=== PATIENT | male | born 1980 | race Caucasian/White ===

== ENCOUNTER 2017-07-01 20:04 | Emergency (ER) | payer BC, MEDICARE ==
[~2017-07-01] VITALS: Ht 180.3 cm; Wt 80.0 kg
[2017-07-01 20:19] VITALS: BP 158/103; PULSE 84; RESP 16; TEMP 98.3; O2SAT 99
[2017-07-02] MEDS ORDERED: DICL75TA PO (00:21)
[2017-07-02] MEDS ORDERED: ROBA500T PO (00:21)
[2017-07-02] MEDS ORDERED: MEDR4PAK PO (00:21)
--- NOTE | 2017-07-02 00:27 | PD ---
HPI Chief Complaint: Skin Problem Time Seen by Provider: 23:48 Travel History International Travel<30 days: No Contact w/Intl Traveler<30days: No Traveled to known affect area: No History of Present Illness HPI 36-year-old white male presents emergency department requesting treatment of his rash. He just got into town today. He plans on going to [facility] in [facility]. 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 He typically has progression of his disease if not treated quickly. He typically gets an injection of steroids. Patient also goes on to state that he is disabled with multiple chronic orthopedic injuries and feels that he has exacerbated his chronic neck pain during the drive down to [place] and by moving a cooler in the car. He states that he is taking ibuprofen without relief. He plans on being in town for the next 10 days. Symptoms are mild. Exacerbated by movement and working in the yard. No alleviating factor. PFSH Past Medical History Narrative Medical Hypertension, chronic neck and back pain, Immunizations Current: Yes Tetanus Vaccination: < 5 Years Influenza Vaccination: No Past Surgical History Narrative Surgical Multiple orthopedic surgeries Social History Alcohol Use: No Tobacco Use: No Substance Use: No Allergies-Medications (Allergen,Severity, Reaction): Coded Allergies: acetaminophen (Verified Allergy, Unknown, 07/01/17) aripiprazole (Verified Allergy, Unknown, 07/01/17) hydrocodone (Verified Allergy, Unknown, 07/01/17) propoxyphene (Verified Allergy, Unknown, 07/01/17) tramadol (Verified Allergy, Unknown, 07/01/17) venlafaxine (Verified Allergy, Unknown, 07/01/17) Reported Meds & Prescriptions Reported Meds & Active Scripts Active Diclofenac Sodium DR (Diclofenac Sodium) 75 Mg Tabdr 75 Mg PO BID Robaxin (Methocarbamol) 500 Mg Tab 1,000 Mg PO TID 7 Days Medrol Dosepak (Methylprednisolone) 4 Mg Dspk 4 Mg PO DIRECTED Per Pharmacist direction Review of Systems Except as stated in HPI: all other systems reviewed are Neg Physical Exam Narrative GENERAL: Well-developed, well-nourished in no acute distress. Nontoxic appearing. HEAD: Normocephalic, atraumatic. EYES: Pupils equal round and reactive. Extraocular motions intact. No scleral icterus. No injection or drainage. ENT: TMs clear without erythema. The external auditory canals clear. Nose: clear . Posterior pharynx is pink and moist. No tonsillar edema or exudate. Uvula midline. Airway patent. NECK: Trachea midline. Complaints of diffuse cervical tenderness. Decreased range of motion. No central bony tenderness or spasm. CARDIOVASCULAR: Regular rate and rhythm without murmurs, gallops, or rubs. RESPIRATORY: Clear to auscultation. Breath sounds equal bilaterally. No wheezes , rales, or rhonchi. GASTROINTESTINAL: Abdomen soft, non-tender, nondistended. No hepato-splenomegaly , or palpable masses. No guarding. EXTREMITIES: No clubbing, cyanosis, or edema. No joint tenderness, effusion, or edema noted. BACK: Nontender without deformity or crepitance. No flank tenderness. Skin: Patient complains of a mild erythema to the upper extremities. There are a few small punctate lesions without vesicles or pustules. Data Data Last Documented VS Vital Signs Date Time Temp Pulse Resp B/P (MAP) Pulse Ox O2 Delivery O2 Flow Rate FiO2 07/01/17 20:19 98.3 84 16 158/103 (121) 99 Orders Orders Dexamethasone Inj (Decadron Inj) (07/02/17 00:30) Ed Discharge Order (07/02/17 00:17) [facility] Medical Decision Making Medical Screen Exam Complete: Yes Emergency Medical Condition: Yes Medical Record Reviewed: Yes Differential Diagnosis MDM: High Differential diagnoses: Abscess, folliculitis, cellulitis, lymphangitis, abrasion, contact dermatitis, acute exacerbation of chronic pain, malingering Narrative Course The patient is given Decadron 12 mg IM. He will be given a Medrol Dosepak, diclofenac and Robaxin. I do not believe that his complaint of pain requires opiates. He has an allergy to acetaminophen, hydrocodone, propoxyphene and tramadol. This is contact dermatitis, acute exacerbation of chronic pain Diagnosis Primary Impression: Contact dermatitis Additional Impression: acute exacerbation of chronic pain Patient Instructions: General Instructions Additional Instructions: Rest. Ice. Medications as directed. Aveeno bath. Follow-up with a medical doctor in the next 3-7 days. Return to the ER if any problems. Med/Other Pt SpecificInfo: Prescription(s) given Scripts Diclofenac Sodium (Diclofenac Sodium DR) 75 Mg Tabdr 75 MG PO BID, #14 TAB 0 Refills Prov: Julian Smith MD 07/02/17 Methocarbamol (Robaxin) 500 Mg Tab 1000 MG PO TID for Muscle Spasm for 7 Days, TAB 0 Refills Prov: Julian Smith MD 07/02/17 Methylprednisolone Dosepak (Medrol Dosepak) 4 Mg Dspk 4 MG PO DIRECTED, #1 DSPK 0 Refills Per Pharmacist direction Prov: Julian Smith MD 07/02/17 Disposition: 01 DISCHARGE HOME Condition: Stable Wilman Burgos July 02, 2017 00:27
[2017-07-02] MEDS ORDERED: DEXAMETHASONE SOD PHOS 20 MG/5 ML VIAL IM ONE (00:30)
== END 2017-07-02 00:46 | disposition home or self-care (01) ==
LOC: NEPD 20:04
DX: L25.9 Unspecified contact dermatitis, unspecified cause (principal); G89.29 Other chronic pain
CPT/HCPCS: 96372; 99283; J1100